=== PATIENT | female | born 1940 | race Caucasian/White ===

== ENCOUNTER → 2017-01-04 | Outpatient (CLI) | payer OTHER, BC | LOC: FIMAGING 14:26 | PROVIDERS: ATTEND Internal Medicine | DX: Z12.31 Encounter for screening mammogram for malignant neoplasm of breast (principal); Z85.3 Personal history of malignant neoplasm of breast; Z92.3 Personal history of irradiation | CPT/HCPCS: G0202 ==

== ENCOUNTER 2017-03-30 11:45 | Inpatient (IN) | payer OTHER, BC ==
[2017-03-30] MEDS ORDERED: NS 1,000 ML IV ONE (12:57)
--- NOTE | 2017-03-30 13:17 | EDPHY ---
H & P Time Seen by Provider: 03/30/17 12:54 HPI/ROS: CHIEF COMPLAINT: Cough HISTORY OF PRESENT ILLNESS: The patient is a 76-year-old female with a history of breast cancer Parkinson's disease who presents to the emergency department with cough from the. Her symptoms started 3 days ago. She states her cough is productive of clear and brown sputum. She had a fever at home to 101. She has mild shortness of breath. She feels more fatigued than normal. The she denies nausea or vomiting. No abdominal pain. She has a mild sore throat. Mild nasal congestion. She was seen in urgent care yesterday and started on Ceftin. She is here because she wants a chest x-ray. REVIEW OF SYSTEMS: My complete review of systems is negative except as mentioned in the HPI. Past Medical/Surgical History: The includes Parkinson's disease, breast cancer Past surgical history: Lumpectomy, appendectomy Social history: The patient does not smoke Smoking Status: Never smoked Physical Exam: Vitals noted. 37.5, 156/77, 88, 18, 95% on room air GENERAL: No acute distress, alert. HEENT: Eyes normal to inspection, normal pharynx, no signs of dehydration. NECK: No thyromegaly, no lymphadenopathy, supple. RESPIRATORY: Clear to auscultation bilaterally, no rales, rhonchi or wheezing. Normal CVS: Regular rate and rhythm, no rubs, murmurs, or gallops. ABDOMEN: Soft, nontender, nondistended, no organomegaly. BACK: Normal to inspection, no CVA tenderness. SKIN: Normal color, no rash, warm, dry. No pallor. EXTREMITIES: No pedal edema, no calf tenderness, no Homans sign or cords, no joint swelling. NEURO/PSYCH: Alert and oriented x3, normal mood and affect, normal motor sensory exam. Constitutional: Initial Vital Signs Temperature (C) 37.5 C 03/30/17 11:58 Heart Rate 88 03/30/17 11:58 Respiratory Rate 18 03/30/17 11:58 Blood Pressure 156/77 H 03/30/17 11:58 O2 Sat (%) 95 03/30/17 11:58 O2 Delivery Mode Room Air Allergies/Adverse Reactions: No Allergies [NKDA] Allergy (Verified 07/09/12 15:14) Home Medications: Medication Instructions Recorded NO HOME MEDS 08/23/13 Albuterol 03/30/17 Carbidopa-Levo 10-100 mg Odt 03/30/17 Medical Decision Making ED Course/Re-evaluation: In the emergency department I discussed possible etiologies with the patient. I answered all her questions. IV was placed. Laboratory studies were obtained. The blood cultures were ordered. Respiratory screen ordered. Chest x-ray was ordered. Patient was given normal saline 500 mL IV for hydration. I reviewed the patient's laboratory studies. Of note her sodium was markedly low at 118. Potassium 3.2. Troponin was negative. BNP 4310. The chest x-ray: Left lower lobe infiltrate. I discussed the results with the patient. The patient was given Levaquin 750 mg IV. She does not appear septic or toxic. I discussed the case with the hospitalist service. He will admit the patient. Differential Diagnosis: My differential includes but is not limited to pneumonia, bronchitis, viral illness, pharyngitis, bacteremia, sepsis - Data Points Laboratory Results: Laboratory Results 03/30/17 13:00 03/30/17 13:00 03/30/17 03/30/17 13:00 13:00 WBC 6.45 10^3/uL 10^3/uL (3.80-9.50) RBC 3.65 10^6/uL L 10^6/uL (4.18-5.33) Hgb 11.7 g/dL L g/dL (12.6-16.3) Hct 32.5 % L % (38.0-47.0) MCV 89.0 fL fL (81.5-99.8) MCH 32.1 pg pg (27.9-34.1) MCHC 36.0 g/dL g/dL (32.4-36.7) RDW 12.0 % % (11.5-15.2) Plt Count 305 10^3/uL 10^3/uL (150-400) MPV 9.1 fL fL (8.7-11.7) Neut % (Auto) 80.6 % H % (39.3-74.2) Lymph % (Auto) 9.1 % L % (15.0-45.0) [place] % (Auto) 9.5 % % (4.5-13.0) Eos % (Auto) 0.2 % L % (0.6-7.6) Baso % (Auto) 0.3 % % (0.3-1.7) Nucleat RBC Rel Count 0.0 % % (0.0-0.2) Absolute Neuts (auto) 5.20 10^3/uL 10^3/uL (1.70-6.50) Absolute Lymphs (auto) 0.59 10^3/uL L 10^3/uL (1.00-3.00) Absolute Monos (auto) 0.61 10^3/uL 10^3/uL (0.30-0.80) Absolute Eos (auto) 0.01 10^3/uL L 10^3/uL (0.03-0.40) Absolute Basos (auto) 0.02 10^3/uL 10^3/uL (0.02-0.10) Absolute Nucleated RBC 0.00 10^3/uL 10^3/uL (0-0.01) Immature Gran % 0.3 % % (0.0-1.1) Immature Gran # 0.02 10^3/uL 10^3/uL (0.00-0.10) Sodium 118 mEq/L L* mEq/L (134-144) Potassium 3.2 mEq/L L mEq/L (3.5-5.2) Chloride 81 mEq/L L mEq/L (97-110) Carbon Dioxide 26 mEq/l mEq/l (22-31) Anion Gap 11 mEq/L mEq/L (8-16) BUN 13 mg/dL mg/dL (7-23) Creatinine 0.6 mg/dL mg/dL (0.6-1.0) Estimated GFR > 60 Glucose 121 mg/dL H mg/dL (70-100) Calcium 8.1 mg/dL L mg/dL (8.5-10.4) Troponin I < 0.012 ng/mL ng/mL (0.000-0.034) NT-Pro-B Natriuret Pep 4310 pg/mL H pg/mL (0-450) Medications Given: Discontinued Medications Sodium Chloride (Ns) 1,000 mls @ 0 mls/hr IV ONCE ONE; Wide Open PRN Reason: Protocol Stop: 03/30/17 12:58 Last Admin: 03/30/17 12:58 Dose: 1,000 mls Sodium Chloride (Ns) 500 mls @ 0 mls/hr IV ONCE ONE PRN Reason: Wide Open Stop: 03/30/17 13:20 Last Admin: 03/30/17 13:29 Dose: Not Given Departure - Departure Disposition: Home, Routine, Self-Care Clinical Impression: Hyponatremia Acute bronchitis Qualifiers: Bronchitis organism: unspecified organism Qualified Code(s): J20.9 - Acute bronchitis, unspecified Left lower lobe pneumonia Qualifiers: Pneumonia type: due to unspecified organism Qualified Code(s): J18.1 - Lobar pneumonia, unspecified organism Condition: Fair Referrals: Kasey Ivory MD [Primary Care Provider] - As per Instructions
[2017-03-30] MEDS ORDERED: NS 500 ML IV ONE (13:19)
[2017-03-30 13:24] LABS: % IMMATURE GRANULYOCYTES 0.3 % (0.0-1.1); ABSOLUTE IMMATURE GRANULOCYTES 0.02 10^3/uL (0.00-0.10); ADD DIFF? NO; ADD MORPH? NO; ADD SCAN? NO; ATYPICAL LYMPHOCYTE FLAG 40 (0-99); FRAGMENT RBC FLAG 0 (0-99); HEMATOCRIT 32.5 % (38.0-47.0); HEMOGLOBIN 11.7 g/dL (12.6-16.3); LEFT SHIFT FLG 0 (0-99); LIPEMIA HEMOLYSIS FLAG 90 (0-99); MEAN CELL HEMOGLOBIN 32.1 pg (27.9-34.1); MEAN PLATELET VOLUME 9.1 fL (8.7-11.7); PLATELET CLUMPS FLAG 10 (0-99); PLATELET COUNT 305 10^3/uL (150-400); RED BLOOD CELL COUNT 3.65 10^6/uL (4.18-5.33)
[2017-03-30 13:32] LABS: ANION GAP 11 mEq/L (8-16); CALCIUM 8.1 mg/dL (8.5-10.4); CARBON DIOXIDE 26 mEq/l (22-31); CHLORIDE 81 mEq/L (97-110); CREATININE 0.6 mg/dL (0.6-1.0); GLOMERULAR FILTRATION RATE > 60; GLUCOSE 121 mg/dL (70-100); POTASSIUM 3.2 mEq/L (3.5-5.2)
[2017-03-30 13:43] LABS: SODIUM 118 mEq/L (134-144); TROPONIN I < 0.012 ng/mL (0.000-0.034)
[2017-03-30] MEDS ORDERED: ONDANSETRON 4 MG/2 ML VIAL IVP PRN (15:11)
[2017-03-30] MEDS ORDERED: ACETAMINOPHEN 325 MG TAB PO PRN (15:11)
--- NOTE | 2017-03-30 15:46 | GHP ---
[f rep st] HISTORY AND PHYSICAL DATE OF ADMISSION: 03/30/2017 CHIEF COMPLAINT: Fatigue. HISTORY OF PRESENT ILLNESS: This is a 76-year-old female with history of essential tremor who presen jose miguel to the emergency department today with worsening fatigue. She was an [place] last week where iveth moss went for a swim in a cold ralph last Saturday. After her swim she became very chilled. Following dorys t, she developed a cough and persistent chills that have worsened over the past few days. She descri bes her cough as productive. She denies any chest pain. Her appetite has been very poor. She has n ot been eating much. She has not been drinking much water. Today, her daughter did force her to dri nk about 32 ounces of water, which she did. PAST MEDICAL HISTORY: Essential tremor. PAST SURGICAL HISTORY: Lumpectomy for cancerous breast mass status post radiation. MEDICATION: Sinemet. ALLERGIES: No known drug allergies. SOCIAL HISTORY: She lives in [place] but also has a [place] in [place]. She denies any alcohol, tobacco, or illicit drug use. FAMILY HISTORY: Reviewed and noncontributory. REVIEW OF SYSTEMS: Comprehensive 10-point review of systems was done and is negative, except for as mentioned in the HPI. PHYSICAL EXAM: VITAL SIGNS: Blood pressure 156/77, heart rate 88, respiratory rate 18, O2 saturatio n 95% on room air. Temperature afebrile. GENERAL: No acute distress. Does appear to be moderately ill appearing. HEENT: Head normocephalic, atraumatic. EYES: PERRLA. Sclerae anicteric. Mouth: Dry oral mucosa. NECK: Supple. No lymphadenopathy. CARDIOVASCULAR: S1-S2. No murmurs, rubs, clic ks, gallops. No JVD. No lower extremity edema. PULMONARY: Lungs are clear. No wheezes, rales, or rhonchi. Normal respiratory effort. ABDOMEN: Soft, nontender, nondistended. No guarding or rebou nd tenderness. Normoactive bowel sounds. EXTREMITIES: No clubbing or cyanosis. NEURO: Cranial ne rves 2-12 grossly intact. No focal motor or sensory deficits. SKIN: Clear. No rashes. DIAGNOSTICS: Chest x-ray, which I visualized and personally interpreted, shows alveolar opacity left lower lobe with increased interstitial markings bilaterally. WBC 6.4, hemoglobin 11.7, hematocrit 32.5, platelets 305, sodium 118, potassium 3.2, chloride 81, BUN 13, creatinine 0.6, glucose 121, troponin was negative. BNP was 4310. Blood cultures are pending. Respiratory panel, PCR is pending. ASSESSMENT AND PLAN: This is a 76-year-old female presenting with fatigue, found to have: 1. Hyponatremia that appears to be symptomatic and most likely multifactorial in etiology, given her poor solute intake and relatively large amount of water consumption today. She is also at risk for SIADH, given her possible pneumonia. a. PLAN: The patient was given a 1.5 L of normal saline in the emergency department. For now, we w ill defer continuing IV fluids. We will check a urine sodium and osmolality. Serum sodium will be o rdered for the morning. 2. Left lower lobe infiltrate on chest x-ray, concerning for possible pneumonia which could be bacte rial versus viral. a. PLAN: Blood cultures have been drawn in the emergency department. A viral PCR has also been ord ered. She has been started on levofloxacin which will be continued. Will also add a procalcitonin l evel to evaluate for signs of bacterial infection versus viral. 3. Elevated BNP without overt signs of congestive heart failure, which I suspect is due to an acute pulmonary process. a. PLAN: I will discuss this finding with the patient, which I have not yet done. I will order echo cardiogram to further evaluate cardiac function. I suspect the patient may have a component of pulmo nary fibrosis. 4. The patient requests to be full code status. /[id number]/MODL
[2017-03-30] MEDS ORDERED: CARBIDOPA/LEVODOPA 25 MG/100 MG TAB PO SCH (17:00)
[2017-03-30] MEDS ORDERED: ALBUTEROL 200 PUFFS/18 GM MDI IH PRN (17:07)
[2017-03-30] MEDS ORDERED: CEFDINIR 300 MG CAP PO SCH (21:00)
[2017-03-31 04:41] LABS: % IMMATURE GRANULYOCYTES 0.3 % (0.0-1.1); ABSOLUTE IMMATURE GRANULOCYTES 0.02 10^3/uL (0.00-0.10); ADD DIFF? NO; ADD MORPH? NO; ADD SCAN? NO; ATYPICAL LYMPHOCYTE FLAG 20 (0-99); FRAGMENT RBC FLAG 0 (0-99); HEMATOCRIT 31.4 % (38.0-47.0); HEMOGLOBIN 11.3 g/dL (12.6-16.3); LEFT SHIFT FLG 0 (0-99); LIPEMIA HEMOLYSIS FLAG 90 (0-99); MEAN CELL HEMOGLOBIN 31.7 pg (27.9-34.1); MEAN CELL VOLUME 88.2 fL (81.5-99.8); MEAN PLATELET VOLUME 9.3 fL (8.7-11.7); PLATELET CLUMPS FLAG 0 (0-99); PLATELET COUNT 303 10^3/uL (150-400); RED BLOOD CELL COUNT 3.56 10^6/uL (4.18-5.33); RED CELL DISTRIBUTION WIDTH 11.9 % (11.5-15.2)
[2017-03-31 04:53] LABS: ANION GAP 9 mEq/L (8-16); CARBON DIOXIDE 27 mEq/l (22-31); CHLORIDE 83 mEq/L (97-110); CREATININE 0.5 mg/dL (0.6-1.0); GLOMERULAR FILTRATION RATE > 60; GLUCOSE 106 mg/dL (70-100); POTASSIUM 3.6 mEq/L (3.5-5.2)
[2017-03-31 04:56] LABS: SODIUM 119 mEq/L (134-144)
[2017-03-31] MEDS: CARBIDOPA/LEVODOPA 25 MG/100 MG TAB PO SCH ×3 (05:24→17:45)
[2017-03-31] MEDS: [UNRECOGNIZED DRUG - OTHER] PO SCH (07:52)
[2017-03-31] MEDS: SACCHAROMYCES BOULARDII PO SCH (07:52)
[2017-03-31] MEDS ORDERED: ENOXAPARIN 40 MG/0.4 ML SYR SC SCH (09:00)
--- NOTE | 2017-03-31 09:57 | ECHO ---
[id number] + + [id number] : : [place] [id number] : : [phone] + + Adult Echocardiographic Report + -----+ :Name: GERMAN GOODWIN LStudy Date: 03/31/2017 07:32 AM : : Hospital Admission Number: [id number] Location : 212: :: 1940 Gender: Female Height: 64 in : :Age: 76 yrs Race: WH Weight: 155 lb : :Reason For Study: Elevated BNP : : BSA: 1.8 meters2 : + -----+ MMode/2D Measurements & Calculations IVSd: 0.70 cm LVIDd: 4.8 cm FS: 42.6 % MV Diam: 3.0 cm LVPWd: 0.76 cm LVIDs: 2.7 cm EDV(Teich): 106.1 ml ESV(Teich): 28.1 ml EF(Teich): 73.5 % Ao root diam: LVOT diam: 1.9 cmLVLd ap4: 6.0 cm SV(MOD-sp4): 3.0 cm LVOT area: EDV(MOD-sp4): 35.0 ml LA dimension: 2.7 cm2 48.0 ml 4.7 cm LVLs ap4: 5.2 cm ESV(MOD-sp4): 13.0 ml EF(MOD-sp4): 72.9 % Normal Measurement Values: + + :LVIDd (3.5-5.7cm) IVSd (0.6-1.1cm) LVPWd (0.6-1.1cm) Aortic Root (2.0-3.7cm)Left Atrium (1.5-4.0cm): :LV Vol(d) (76-115ml) LV Vol(s) (29-48ml) Ejec Fraction (50-65%)PV Fredy (0.6- 1.2m/s) TV Fredy (0.4-1.0m/s) : :MV E Fredy (0.8-1.0m/s)MV A Fredy (0.3-1.0m/s)LVOT Fredy (0.7-1.2m/s) Asc Ao Fredy ( 0.9-1.8m/s) : + + Doppler Measurements & Calculations MV E max fredy: MV V2 max: Ao mean PG: LV V1 mean P.3 cm/sec 99.1 cm/sec 2.2 mmHg 1.3 mmHg MV A max fredy: MV max P.9 mmHg Ao V2 mean: LV V1 mean: 29.6 cm/sec MV V2 mean: 68.2 cm/sec 54.1 cm/sec MV E/A: 3.1 53.4 cm/sec Ao V2 VTI: 17.8 cm LV V1 VTI: 15.6 cm MV mean P.4 mmHgAVA(I,D): 2.4 cm2 MV V2 VTI: 18.2 cm MV area (1 diam): 7.3 cm2 MVA(VTI): 2.3 cm2 MV Flow area(1diam): 7.3 cm2 MR max fredy: MR(RF 1 diam): SV(MV 1 diam): TR max fredy: 530.6 cm/sec 17.6 % 133.2 ml 294.5 cm/sec MR max PG: SI(MV 1 diam): TR max P.6 mmHg 75.9 ml/m2 34.7 mmHg SV(LVOT): 42.8 ml RAP systole: 10.0 mmHg RVSP(TR): 44.7 mmHg RF(MV,Ao)(1 diam): 0.03 RF(MV,LVOT)(1diam): 0.68 Left Ventricle The left ventricle is normal in size. There is normal left ventricular wall thickness. Left ventricular systolic function is normal. Ejection Fraction = 65-70%. No regional wall motion abnormalities noted. Right Ventricle The right ventricle is normal in size and function. Atria The left atrium is moderate to severely dilated. The right atrium is moderately dilated. The interatrial septum is intact with no evidence for an atrial septal defect. Mitral Valve The mitral valve is normal in structure and function. There is no evidence of mitral valve prolapse. There is no mitral valve stenosis. There is moderate to severe mitral regurgitation. Tricuspid Valve Normal tricuspid valve. There is mild tricuspid regurgitation. Right ventricular systolic pressure is 45mmHg. There is Doppler evidence for mild pulmonary hypertension. Aortic Valve The aortic valve is trileaflet. The aortic valve opens well. MIld aortic calcification. There is no aortic stenosis. There is no aortic insufficiency. Pulmonic Valve The pulmonic valve is normal in structure and function. There is no pulmonic valvular regurgitation. Great Vessels The aortic root is normal size. Pericardium/Pleural There is no pericardial effusion. Conclusion A complete two-dimensional transthoracic echocardiogram was performed (2D, M-mode, Doppler and color flow Doppler). Left ventricular systolic function is normal. Ejection Fraction = 65-70%. The left atrium is moderate to severely dilated. The right atrium is moderately dilated. There is moderate to severe mitral regurgitation. There is mild tricuspid regurgitation. Right ventricular systolic pressure is 45mmHg. There is Doppler evidence for mild pulmonary hypertension. MIld aortic calcification is present. The patient is in atrial fibrillation or flutter for the majority of the study. The most likely cause of the elevated BNP is valvular heart disease with significant mitral regurgitation and associated atrial rhythm disturbance. Final Reading Physician: Tariq Aponte signed on 03/31/2017 09:55 AM Ordering Physician: Luis Manuel Neves Performed By: Rachel Ozuna RDCS
[2017-03-31] MEDS: SODIUM CHLORIDE 1,000 MG TAB PO SCH ×3 (10:09→17:46)
--- NOTE | 2017-03-31 10:35 | HOSPPROG ---
Hospitalist Progress Note Assessment/Plan: * hyponatremia * Urine studies consistent with SIADH * She probably runs fairly low and with recent pneumonia had decreased solute intake * Placed on fluid restriction with salt tablets * Will check a few more sodiums today to make sure it is not rising too fast * new diagnosis of atrial fibrillation and mitral regurgitation * Discussed with Cardiology * Will start Eliquis * She will follow up with Dr. Hutchison on discharge * left upper lobe pneumonia * Levaquin * Parkinson's Subjective: Feeling good. Wants to go home Objective: Vital Signs Temp Pulse Resp BP Pulse Ox 36.8 C 83 18 147/53 H 94 03/31/17 08:23 03/31/17 08:23 03/31/17 08:23 03/31/17 08:23 03/31/17 08:23 Laboratory Results 03/31/17 03:42 03/31/17 03:42 03/30/17 03/31/17 04/01/17 05:59 05:59 05:59 Intake Total 2000 400 Output Total 400 Balance 1600 400 Discussed with Cardiology Tele personally viewed interpreted atrial fibrillation - Physical Exam Constitutional: no apparent distress, appears nourished, not in pain Eyes: anicteric sclera, EOMI Ears, Nose, Mouth, Throat: moist mucous membranes, hearing normal Cardiovascular: irregularly irregular Respiratory: no respiratory distress, no rales or rhonchi, other (Slight rhonchi left upper lobe) Gastrointestinal: normoactive bowel sounds, soft, non-tender abdomen, no palpable masses Neurologic: AAOx3 Psychiatric: interacting appropriately, not anxious, not encephalopathic, thought process linear ICD10 Worksheet Patient Problems: Problems Problem Status Onset Acute bronchitis Acute Hyponatremia Acute Left lower lobe pneumonia Acute
[2017-03-31] MEDS: guaiFENesin 600 MG TAB.ER PO SCH ×2 (10:57→19:42)
[2017-03-31 11:14] LABS: ANION GAP 10 mEq/L (8-16); CARBON DIOXIDE 26 mEq/l (22-31); CHLORIDE 82 mEq/L (97-110); CREATININE 0.5 mg/dL (0.6-1.0); GLOMERULAR FILTRATION RATE > 60; GLUCOSE 127 mg/dL (70-100); POTASSIUM 3.2 mEq/L (3.5-5.2)
[2017-03-31 11:16] LABS: SODIUM 118 mEq/L (134-144)
--- NOTE | 2017-03-31 17:08 | ASMTCMCOM ---
CM Note CM Note Notes: 76 year old woman admitted for hyponatremia, left LL PNA, fatigue. has a Hx of tremor and breast ca-s/p lumpectomy and radiation. Patient complains of weakness. Therapy has not yet evaluated patient for possible DC needs. Date Signed: 03/31/2017 02:19 PM Electronically Signed By:Azalia Odonnell
[2017-03-31 17:41] LABS: ANION GAP 9 mEq/L (8-16); CARBON DIOXIDE 23 mEq/l (22-31); CHLORIDE 85 mEq/L (97-110); CREATININE 0.5 mg/dL (0.6-1.0); GLOMERULAR FILTRATION RATE > 60; GLUCOSE 121 mg/dL (70-100); POTASSIUM 4.3 mEq/L (3.5-5.2); SPECIMEN HEMOLYSIS 138
[2017-03-31 17:53] LABS: SODIUM 117 mEq/L (134-144)
[2017-03-31] MEDS: APIXABAN 5 MG TAB PO SCH (19:43)
[2017-04-01] MEDS: CARBIDOPA/LEVODOPA 25 MG/100 MG TAB PO SCH ×3 (04:24→17:56)
[2017-04-01 04:57] LABS: % IMMATURE GRANULYOCYTES 0.2 % (0.0-1.1); ABSOLUTE IMMATURE GRANULOCYTES 0.01 10^3/uL (0.00-0.10); ADD DIFF? NO; ADD MORPH? NO; ADD SCAN? NO; ATYPICAL LYMPHOCYTE FLAG 60 (0-99); FRAGMENT RBC FLAG 0 (0-99); HEMATOCRIT 30.7 % (38.0-47.0); HEMOGLOBIN 11.4 g/dL (12.6-16.3); LEFT SHIFT FLG 0 (0-99); LIPEMIA HEMOLYSIS FLAG 90 (0-99); MEAN CELL HEMOGLOBIN 32.6 pg (27.9-34.1); MEAN CELL HEMOGLOBIN CONCENTR. 37.1 g/dL (32.4-36.7); MEAN CELL VOLUME 87.7 fL (81.5-99.8); MEAN PLATELET VOLUME 8.8 fL (8.7-11.7); PLATELET CLUMPS FLAG 10 (0-99); PLATELET COUNT 315 10^3/uL (150-400); RED CELL DISTRIBUTION WIDTH 12.1 % (11.5-15.2)
--- NOTE | 2017-04-01 05:02 | CPEKG ---
Heart Rate: 78 RR Interval: 769 QRSD Interval: 84 QT Interval: 400 QTC Interval: 456 QRS [place]: -44 T Wave [employer]: 21 EKG Severity - ABNORMAL ECG - EKG Impression: ATRIAL FIBRILLATION, V-RATE 65-90 EKG Impression: LEFT AXIS DEVIATION Electronically Signed By: Alvaro Sanches 01-Apr-2017 07:07:16
[2017-04-01 05:08] LABS: ANION GAP 6 mEq/L (8-16); CALCIUM 8.3 mg/dL (8.5-10.4); CARBON DIOXIDE 28 mEq/l (22-31); CHLORIDE 85 mEq/L (97-110); CREATININE 0.6 mg/dL (0.6-1.0); GLOMERULAR FILTRATION RATE > 60; GLUCOSE 102 mg/dL (70-100); POTASSIUM 3.1 mEq/L (3.5-5.2)
[2017-04-01 05:18] LABS: SODIUM 119 mEq/L (134-144)
--- NOTE | 2017-04-01 08:19 | HOSPPROG ---
Hospitalist Progress Note Assessment/Plan: 76-year-old female admitted and found to have hyponatremia in the left upper lobe pneumonia. 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 * She probably runs fairly low and with recent pneumonia had decreased solute intake * Placed on fluid restriction with salt tablets * Will check a few more sodiums today to make sure it is not rising too fast -new diagnosis of atrial fibrillation and mitral regurgitation * Discussed with Cardiology * Will start Eliquis * She will follow up with Dr. Hutchison on discharge -left upper lobe pneumonia * Levaquin - Parkinson's Subjective: No complaints she says she feels improved in less shortness of breath. There is no cough or sputum production Objective: Vital Signs Temp Pulse Resp BP Pulse Ox 37.0 C 74 16 125/61 H 94 04/01/17 07:25 04/01/17 07:25 04/01/17 07:25 04/01/17 07:25 04/01/17 07:25 Laboratory Results 04/01/17 04:23 04/01/17 04:23 03/31/17 04/01/17 04/02/17 05:59 05:59 05:59 Intake Total 2000 720 Output Total 400 550 Balance 1600 170 Laboratory Tests 03/30/17 13:00 NT-Pro-B Natriuret Pep 4310 H - Time Spent With Patient Time Spent with Patient: greater than 35 minutes Time Spent with Patient: Greater than 35 minutes spent on this patients care, greater than 50% of time spent counseling, educating, and coordinating care regarding the above mentioned plan. - Pending Discharge Pending Discharge Within 24 Hours: No Pending Discharge Within 48 Hours: Yes Pending Discharge Date: 04/03/17 Pending Discharge Time: 11:00 - Physical Exam Constitutional: no apparent distress, chronically ill appearing Eyes: PERRL Ears, Nose, Mouth, Throat: moist mucous membranes, hearing normal Cardiovascular: irregularly irregular Respiratory: no respiratory distress, inspiratory crackles, rhonchi Gastrointestinal: normoactive bowel sounds, soft, non-tender abdomen, no palpable masses Genitourinary: no bladder fullness Skin: warm Musculoskeletal: generalized weakness Neurologic: AAOx3, asterixes Psychiatric: interacting appropriately ICD10 Worksheet Patient Problems: Problems Problem Status Onset Acute bronchitis Acute Left lower lobe pneumonia Acute Hyponatremia Acute
[2017-04-01] MEDS: guaiFENesin 600 MG TAB.ER PO SCH ×2 (08:28→20:18)
[2017-04-01] MEDS: SODIUM CHLORIDE 1,000 MG TAB PO SCH ×3 (08:28→17:56)
[2017-04-01] MEDS: APIXABAN 5 MG TAB PO SCH ×2 (08:28→20:18)
[2017-04-01] MEDS: [UNRECOGNIZED DRUG - OTHER] PO SCH (08:29)
[2017-04-01] MEDS: SACCHAROMYCES BOULARDII PO SCH (08:29)
[2017-04-02 04:45] LABS: HEMATOCRIT 31.7 % (38.0-47.0); HEMOGLOBIN 11.3 g/dL (12.6-16.3); MEAN CELL HEMOGLOBIN 31.7 pg (27.9-34.1); MEAN CELL HEMOGLOBIN CONCENTR. 35.6 g/dL (32.4-36.7); RED BLOOD CELL COUNT 3.56 10^6/uL (4.18-5.33)
[2017-04-02 04:59] LABS: ANION GAP 8 mEq/L (8-16); CALCIUM 8.2 mg/dL (8.5-10.4); CARBON DIOXIDE 27 mEq/l (22-31); CHLORIDE 92 mEq/L (97-110); CREATININE 0.5 mg/dL (0.6-1.0); GLOMERULAR FILTRATION RATE > 60; GLUCOSE 102 mg/dL (70-100); POTASSIUM 3.2 mEq/L (3.5-5.2); SODIUM 127 mEq/L (134-144)
[2017-04-02] MEDS: CARBIDOPA/LEVODOPA 25 MG/100 MG TAB PO SCH ×3 (05:23→17:30)
[2017-04-02] MEDS: SODIUM CHLORIDE 1,000 MG TAB PO SCH ×3 (07:59→17:30)
[2017-04-02] MEDS: guaiFENesin 600 MG TAB.ER PO SCH ×2 (08:00→21:28)
[2017-04-02] MEDS: SACCHAROMYCES BOULARDII PO SCH (08:00)
[2017-04-02] MEDS: APIXABAN 5 MG TAB PO SCH ×2 (08:00→21:28)
[2017-04-02] MEDS: [UNRECOGNIZED DRUG - OTHER] PO SCH (08:00)
--- NOTE | 2017-04-02 08:42 | HOSPPROG ---
Hospitalist Progress Note Assessment/Plan: 76-year-old female admitted and found to have hyponatremia and a left upper lobe pneumonia. 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 * She probably runs fairly low and with recent pneumonia had decreased solute intake * Placed on fluid restriction with salt tablets * Will check a few more sodiums today to make sure it is not rising too fast -new diagnosis of atrial fibrillation and mitral regurgitation * Discussed with Cardiology * Will start Eliquis * She will follow up with Dr. Hutchison on discharge -left upper lobe pneumonia * Levaquin - Parkinson's Objective: Vital Signs Temp Pulse Resp BP Pulse Ox 37.1 C 79 13 140/75 H 91 L 04/02/17 03:53 04/02/17 03:53 04/02/17 03:53 04/02/17 03:53 04/02/17 03:53 Laboratory Results 04/02/17 03:50 04/02/17 03:50 04/01/17 04/02/17 04/03/17 05:59 05:59 05:59 Intake Total 720 900 Output Total 550 1600 Balance 170 -700 ICD10 Worksheet Patient Problems: Problems Problem Status Onset Acute bronchitis Acute Left lower lobe pneumonia Acute Hyponatremia Acute
[2017-04-02 13:23] LABS: ANION GAP 10 mEq/L (8-16); CALCIUM 8.3 mg/dL (8.5-10.4); CARBON DIOXIDE 27 mEq/l (22-31); CHLORIDE 91 mEq/L (97-110); CREATININE 0.5 mg/dL (0.6-1.0); GLOMERULAR FILTRATION RATE > 60; GLUCOSE 120 mg/dL (70-100); POTASSIUM 3.3 mEq/L (3.5-5.2); SODIUM 128 mEq/L (134-144)
[2017-04-03] MEDS: CARBIDOPA/LEVODOPA 25 MG/100 MG TAB PO SCH ×2 (05:39→11:32)
[2017-04-03] MEDS: SODIUM CHLORIDE 1,000 MG TAB PO SCH ×2 (07:46→11:32)
[2017-04-03] MEDS: guaiFENesin 600 MG TAB.ER PO SCH (07:46)
[2017-04-03] MEDS: APIXABAN 5 MG TAB PO SCH (07:46)
[2017-04-03] MEDS: SACCHAROMYCES BOULARDII PO SCH (07:47)
[2017-04-03] MEDS: [UNRECOGNIZED DRUG - OTHER] PO SCH (07:47)
[2017-04-03] MEDS ORDERED: PROTOCOL MAGNESIUM 1 DOSE IV PRN (09:24)
[2017-04-03] MEDS ORDERED: PROTOCOL POTASSIUM 1 DOSE MISC PRN (09:24)
[2017-04-03 10:28] LABS: ANION GAP 8 mEq/L (8-16); CALCIUM 9.2 mg/dL (8.5-10.4); CARBON DIOXIDE 30 mEq/l (22-31); CHLORIDE 90 mEq/L (97-110); CREATININE 0.6 mg/dL (0.6-1.0); GLOMERULAR FILTRATION RATE > 60; GLUCOSE 94 mg/dL (70-100); MAGNESIUM 2.2 mg/dL (1.6-2.3); SODIUM 128 mEq/L (134-144)
[2017-04-03 10:58] LABS: CORTISOL-AM 12.8 ug/dL (4.5-22.7)
[2017-04-03] MEDS ORDERED: POTASSIUM CL 20 MEQ TAB PO SCH (12:15)
[2017-04-03] MEDS ORDERED: FLU VACC QS 2017-18 (3YR+)/PF 0.5 ML SYR (FLUARIX QUAD) IM ONE (15:30)
[2017-04-03 16:05] VITALS: BP 121/66; PULSE 77; RESP 11; TEMP 98.5; O2SAT 92
--- NOTE | 2017-04-04 02:42 | GDS ---
[f rep st] DISCHARGE SUMMARY KNOWN ACUTE DIAGNOSES: 1. Acute pneumonia. 2. Hyponatremia. 3. Parkinson disease. 4. Atrial fibrillation with mitral regurgitation. CONSULTATIONS: None. PROCEDURES: None. HOSPITAL COURSE: This 76-year-old female presented with worsening fatigue and an essential tremor. She was found to have a left lower lobe pneumonia and noted to be in atrial fibrillation with RVR. H er rate was brought under good control. Echocardiogram was performed showing normal LV function 65% to 70%, moderately dilated left atrium with an intact septum without evidence of atrial septal defect . She did demonstrate moderate to severe mitral regurgitation. During this hospitalization, she had a new diagnosis of atrial fibrillation with mitral regurgitation . Case was discussed with Cardiology, and she was started on Eliquis. The hyponatremia was felt to be secondary to SIADH syndrome. Her initial sodium was 118 and corby to 128. Her adrenal function was evaluated and showed a normal a.m. cortisol level. Her TSH was also n ormal. Her procalcitonin was also normal, and a respiratory PCR panel was negative for flu. During hospitalization, she was maintained on Levaquin and will be discharged on 3 more days of Levaquin and completion of a course for community-acquired pneumonia. DISCHARGE MEDICATIONS: Her new medications are as follows: Levaquin 750 mg daily for 3 days, guaife nesin 600 mg b.i.d., Eliquis 5 mg p.o. b.i.d. Her continued medications are herbal supplementation, calcium carbonate, albuterol inhaler 1-2 puffs q.4 hours p.r.n., Omnicef 300 mg b.i.d., vitamin B12, vitamin D3, carbidopa/levodopa 25/100 mg tablets to be taken 1 tablet p.o. t.i.d. PLAN: Patient will follow up with her PCP, Dr. Kasey Ivory, for her routine medical care. She will a lso follow up with Dr. Hutchison for [facility] regarding her atrial fibrillation and continuation of h er anticoagulation. She should see Dr. Hutchison in approximately 2 weeks. I spoke with her sister, and all questions were answered of the patient and of her sister. TIME: This discharge required 45 minutes, greater than 50% to skilled nursing facility counselor, coordinate care. /[id number]/MODL
== END 2017-04-03 17:40 | disposition home or self-care (01) | DRG 643 ==
LOC: OBSVTOIN 15:11 → F2W 16:25
PROVIDERS: ADMIT Family Medicine; ATTEND Internal Medicine Pulmonary Disease
DX: E22.2 Syndrome of inappropriate secretion of antidiuretic hormone (principal); J18.9 Pneumonia, unspecified organism; G20 Parkinson's disease; I48.91 Unspecified atrial fibrillation; I34.0 Nonrheumatic mitral (valve) insufficiency; Z85.3 Personal history of malignant neoplasm of breast; Z23 Encounter for immunization
CPT/HCPCS: 86713-90; 87449-90; 96365; 97161-GP; G0008; G8978-GP-CH; G8979-GP-CH; G8980-GP-CH; J1650; J1956

== ENCOUNTER 2017-04-08 19:53 | Emergency (ER) | payer OTHER, BC ==
[2017-04-08 20:00] VITALS: BP 141/73; PULSE 89; RESP 18; TEMP 98.2; O2SAT 93
--- NOTE | 2017-04-08 20:19 | EDPHY ---
H & P Time Seen by Provider: 04/08/17 20:12 HPI/ROS: CHIEF COMPLAINT: Nausea and fatigue HISTORY OF PRESENT ILLNESS: Patient was discharged on April 03 after having had an admission for left lower lobe pneumonia and atrial fibrillation as well as a sodium of 118. She was discharged on Levaquin is currently on Eliquis. Patient was doing well and in fact washed the windows yesterday. Today she was feeling a little bit of nausea after having a hot toddy which included whiskey, chamomile tea, and honey. She had more fatigue today and presents because she and her family are concerned her sodium may be low again. She has been drinking and eating normally over the past couple of weeks and she still has a cough which is stable. Nausea procedure mild. Not better or worse with anything. Present really just today. REVIEW OF SYSTEMS: Eye: no change in vision ENT: no sore throat Cardiac: no chest pain or syncope Pulmonary: Not short of breath Abdomen: no vomiting, diarrhea, abdominal pain Musculoskeletal: no back pain Skin: no rash Neuro: no headache Constitutional: no fever : no urinary symptoms A comprehensive 10 point review of systems is otherwise negative aside from elements mentioned in the history of present illness. PAST MEDICAL HISTORY: Includes Parkinson's, appendectomy, lumpectomy right breast Social history: Nonsmoker General Appearance: Alert and conversant, cooperative. Eyes: No scleral icterus. ENT, Mouth: Normal mucous membranes. Respiratory: Normal respiratory effort, has left lower lung crackles, speaks in full sentences. Cardiovascular: Regular rate and rhythm. Gastrointestinal: Abdomen is soft and non tender. Neurological: Alert and oriented x3. Normally conversant. Face symmetric, normal movement and sensation in all extremities. Skin: Warm and dry, no rashes. Musculoskeletal: No peripheral edema and no joint swelling. Psychiatric: Not agitated. Emergency Department course/MDM: Patient has persistent symptoms from her pneumonia including cough and lung crackles but is feeling better, afebrile, 93% saturation. I think it is unlikely that her pneumonia is worsening. Patient did ask me about the possibility of tuberculosis but without night sweats or weight loss, improvement on typical oral antibiotics and without cavitary lesion on x-ray I told her I think it is not impossible, but unlikely. Urinalysis is negative. Plan to discharge if her sodium is in acceptable range. 2108: Labs reviewed, sodium 132. I think the most reasonable course of action at this point is to discharge the patient to continue her recovery from her recent hospitalization. Think it is unlikely she has acute emergent medical or surgical condition. Smoking Status: Never smoked Constitutional: Initial Vital Signs Temperature (C) 36.8 C 04/08/17 19:55 Heart Rate 89 04/08/17 19:55 Respiratory Rate 18 04/08/17 19:55 Blood Pressure 141/73 H 04/08/17 19:55 O2 Sat (%) 93 04/08/17 19:55 O2 Delivery Mode Room Air Allergies/Adverse Reactions: No Allergies [NKDA] Allergy (Verified 04/08/17 19:59) Home Medications: Medication Instructions Recorded Albuterol [Proventil Inhaler HFA 1 puffs IH Q4H PRN 03/30/17 (*)] Calcium Carbonate [Oyster Shell 1,000 mg PO DAILY 03/30/17 Calcium 500 mg (*)] Carbidopa/Levodopa 1 each PO TID@,,03/30/17 [Carbidopa-Levodopa 25-100 Tab] Cefdinir [Omnicef (*)] 300 mg PO BID 03/30/17 Cholecalciferol Vit D3 [Vitamin D3 2,000 units PO DAILY 03/30/17 2000 units tab (OTC)] Cyanocobalamin [Vitamin B12 (*)] 1,000 mcg PO DAILY 03/30/17 Herbals/Supplements -Info Only 1 ea PO DAILY 03/30/17 Saccharomyces Boulardii + Mos 1 cap PO DAILY 03/30/17 Probiotic Apixaban [Eliquis] 5 mg PO BID #60 tab 04/03/17 guaiFENesin [Mucinex 600 MG (*)] 600 mg PO BID #14 tab.er 04/03/17 levOFLOXACIN [levAQUIN (*)] 750 mg PO DAILY AT 10AM 3 Days tab 04/03/17 Medical Decision Making - Diagnostics EKG Interpretation: 12-lead EKG interpreted by me; official reading is in trace master. My interpretation is atrial fibrillation rate 81 with right axis Differential Diagnosis: Differential considered including but not limited to worsening pneumonia, hyponatremia, other metabolic abnormality, UTI. - Data Points Laboratory Results: Laboratory Results 04/08/17 20:35 04/08/17 20:35 04/08/17 04/08/17 04/08/17 20:35 20:35 20:35 WBC 6.93 10^3/uL 10^3/uL (3.80-9.50) RBC 3.75 10^6/uL L 10^6/uL (4.18-5.33) Hgb 12.0 g/dL L g/dL (12.6-16.3) Hct 34.4 % L % (38.0-47.0) MCV 91.7 fL fL (81.5-99.8) MCH 32.0 pg pg (27.9-34.1) MCHC 34.9 g/dL g/dL (32.4-36.7) RDW 12.8 % % (11.5-15.2) Plt Count 412 10^3/uL H 10^3/uL (150-400) MPV 8.0 fL L fL (8.7-11.7) Neut % (Auto) 61.3 % % (39.3-74.2) Lymph % (Auto) 21.6 % % (15.0-45.0) [place] % (Auto) 11.0 % % (4.5-13.0) Eos % (Auto) 5.1 % % (0.6-7.6) Baso % (Auto) 0.7 % % (0.3-1.7) Nucleat RBC Rel Count 0.0 % % (0.0-0.2) Absolute Neuts (auto) 4.25 10^3/uL 10^3/uL (1.70-6.50) Absolute Lymphs (auto) 1.50 10^3/uL 10^3/uL (1.00-3.00) Absolute Monos (auto) 0.76 10^3/uL 10^3/uL (0.30-0.80) Absolute Eos (auto) 0.35 10^3/uL 10^3/uL (0.03-0.40) Absolute Basos (auto) 0.05 10^3/uL 10^3/uL (0.02-0.10) Absolute Nucleated RBC 0.00 10^3/uL 10^3/uL (0-0.01) Immature Gran % 0.3 % % (0.0-1.1) Immature Gran # 0.02 10^3/uL 10^3/uL (0.00-0.10) Sodium 132 mEq/L L mEq/L (134-144) Potassium 4.1 mEq/L mEq/L (3.5-5.2) Chloride 95 mEq/L L mEq/L (97-110) Carbon Dioxide 26 mEq/l mEq/l (22-31) Anion Gap 11 mEq/L mEq/L (8-16) BUN 17 mg/dL mg/dL (7-23) Creatinine 0.7 mg/dL mg/dL (0.6-1.0) Estimated GFR > 60 Glucose 112 mg/dL H mg/dL (70-100) Calcium 8.8 mg/dL mg/dL (8.5-10.4) Urine RBC 1-3 /hpf /hpf (0-3) Urine WBC 1-3 /hpf /hpf (0-3) Ur Epithelial Cells TRACE /lpf /lpf (NONE-1+) Urine Mucus TRACE /lpf /lpf (NONE-1+) Departure - Departure Disposition: Home, Routine, Self-Care Clinical Impression: Nausea Fatigue Qualifiers: Fatigue type: unspecified Qualified Code(s): R53.83 - Other fatigue Condition: Good Instructions: Fatigue (ED) Additional Instructions: Sodium 132. No evidence of urinary tract infection. Referrals: Kasey Ivory MD [Primary Care Provider] - As per Instructions
[2017-04-08 20:42] LABS: % IMMATURE GRANULYOCYTES 0.3 % (0.0-1.1); ABSOLUTE IMMATURE GRANULOCYTES 0.02 10^3/uL (0.00-0.10); ADD DIFF? NO; ADD MORPH? NO; ADD SCAN? NO; ATYPICAL LYMPHOCYTE FLAG 30 (0-99); FRAGMENT RBC FLAG 0 (0-99); HEMATOCRIT 34.4 % (38.0-47.0); LEFT SHIFT FLG 0 (0-99); LIPEMIA HEMOLYSIS FLAG 90 (0-99); MEAN CELL HEMOGLOBIN CONCENTR. 34.9 g/dL (32.4-36.7); MEAN CELL VOLUME 91.7 fL (81.5-99.8); PLATELET CLUMPS FLAG 20 (0-99); PLATELET COUNT 412 10^3/uL (150-400); RED BLOOD CELL COUNT 3.75 10^6/uL (4.18-5.33); RED CELL DISTRIBUTION WIDTH 12.8 % (11.5-15.2)
[2017-04-08 20:49] LABS: MUCUS TRACE /lpf (NONE-1+)
--- NOTE | 2017-04-08 20:54 | CPEKG ---
Heart Rate: 81 RR Interval: 741 QRSD Interval: 72 QT Interval: 400 QTC Interval: 465 QRS [place]: 95 T Wave [place]: 21 EKG Severity - ABNORMAL ECG - EKG Impression: ATRIAL FIBRILLATION, V-RATE 61-97 EKG Impression: RIGHT AXIS DEVIATION Electronically Signed By: Eloy Gruber 08-Apr-2017 21:11:33
[2017-04-08 20:58] LABS: ANION GAP 11 mEq/L (8-16); CALCIUM 8.8 mg/dL (8.5-10.4); CARBON DIOXIDE 26 mEq/l (22-31); CHLORIDE 95 mEq/L (97-110); CREATININE 0.7 mg/dL (0.6-1.0); GLOMERULAR FILTRATION RATE > 60; GLUCOSE 112 mg/dL (70-100); POTASSIUM 4.1 mEq/L (3.5-5.2); SODIUM 132 mEq/L (134-144)
== END 2017-04-08 21:27 | disposition home or self-care (01) ==
DX: R11.0 Nausea (principal); R53.83 Other fatigue; G20 Parkinson's disease

== ENCOUNTER → 2017-08-30 | Outpatient (CLI) | payer OTHER, BC | LOC: FCPNEURO 20:00 | PROVIDERS: ATTEND Psychiatry & Neurology Sleep Medicine | DX: G47.31 Primary central sleep apnea (principal) ==

== ENCOUNTER → 2018-01-16 | Outpatient (CLI) | payer OTHER, BC | LOC: FIMAGING 11:25 | PROVIDERS: ATTEND Internal Medicine | DX: Z12.31 Encounter for screening mammogram for malignant neoplasm of breast (principal); Z85.3 Personal history of malignant neoplasm of breast ==